=== PATIENT | female | born 1955 | race African-American/Black ===

== ENCOUNTER 2017-03-29 09:15 | Day surgery (SDC) | payer MEDICARE ==
[~2017-03-29 09:15] MED LIST: ALBUTEROL SUL0.083 % IN; AZITHROMYCIN250 MG PO; BENADRYL 50MG C50 MG PO; LEVAQUIN750 MG PO; MEDDOSEPAK PO; MULTIPLE PO; PATANOL0.1 % OP; PEPCID20 MG PO; PREDNISONE10 MG PO; PROAIR HFA IN; SIMVASTATIN20 MG PO; SYMBICORT1 AE1 IN; TRAZODONE50 MG PO; ZPAK PO
[2017-03-29 11:40] VITALS: BP 112/73
== END 2017-03-29 11:38 | disposition home or self-care (01) ==
LOC: ENDO 09:15 → ORM 11:45 → ENDO 12:00
PROVIDERS: ATTEND Internal Medicine Gastroenterology
PROC: 0DBL8ZX Excision of Transverse Colon, Via Natural or Artificial Opening Endoscopic, Diagnostic (ICD-10-PCS; principal; 2017-03-29)
PROC: 0DBP8ZX Excision of Rectum, Via Natural or Artificial Opening Endoscopic, Diagnostic (ICD-10-PCS; 2017-03-29)
DX: K57.30 Diverticulosis of large intestine without perforation or abscess without bleeding (principal); K64.8 Other hemorrhoids; K64.4 Residual hemorrhoidal skin tags; K62.1 Rectal polyp; D12.3 Benign neoplasm of transverse colon; J44.9 Chronic obstructive pulmonary disease, unspecified; E78.00 Pure hypercholesterolemia, unspecified; Z86.010 Personal history of colon polyps